=== PATIENT | male | born 1950 | race Two or more races ===

== ENCOUNTER 2021-07-16 13:17 | Emergency (ER) | payer BC ==
[~2021-07-16] VITALS: Ht 175.3 cm; Wt 74.8 kg
[2021-07-16 13:25] VITALS: BP 139/83
--- NOTE | 2021-07-16 14:39 | NUR ---
Accompanied Dr Lerner at for eval.
[2021-07-16] MEDS ORDERED: HYDR30CR79 TP (16:04)
[2021-07-16] MEDS ORDERED: POLY17PO4 PO (16:04)
--- NOTE | 2021-07-16 16:13 | NUR ---
Patient discharged to home in stable condition. Written and verbal after care instructions given. Patient verbalizes understanding of instruction.
== END 2021-07-16 16:13 | disposition home or self-care (01) ==
LOC: EDSEX 13:19 → ER 13:19
DX: K62.89 Other specified diseases of anus and rectum (principal); K59.00 Constipation, unspecified; I10 Essential (primary) hypertension; E11.9 Type 2 diabetes mellitus without complications; E78.00 Pure hypercholesterolemia, unspecified
CPT/HCPCS: 74018

== ENCOUNTER 2025-02-20 18:41 | Emergency (ER) | payer BC ==
[~2025-02-20] VITALS: Ht 170.2 cm; Wt 91.2 kg
[~2025-02-20 18:41] MED LIST: HYDR30CR79 TP; POLY17PO4 PO
[2025-02-20 19:44] LABS: PLATELET COUNT (AUTO) 192 K/uL (150-450); RED BLOOD CELL COUNT(AUTO) 4.81 MIL/uL (4.5-6.0); RED CELL DISTRIBUTION WIDTH 14.7 % (11.5-15.0); WHITE BLOOD COUNT (AUTO) 9.3 K/uL (4.3-11.0)
[2025-02-20 19:53] LABS: CALCIUM, SERUM 9.3 mg/dL (8.5-10.1); CREATININE 2.0 mg/dL (0.6-1.3); SODIUM SERUM 139 mmol/L (136-145); UREA NITROGEN, BLOOD 26 mg/dL (7-18)
[2025-02-20 20:09] LABS: NT-PRO BNP 1306 pg/mL (0-125)
[2025-02-20] MEDS: FUROSEMIDE 40 MG/4 ML VIAL IV ONE (20:32)
[2025-02-20] MEDS ORDERED: FURO-145 PO (22:13)
[2025-02-20 22:38] VITALS: BP 132/91; TEMP 98.3; O2SAT 94
== END 2025-02-20 22:39 | disposition home or self-care (01) ==
LOC: ER 18:46
DX: I11.0 Hypertensive heart disease with heart failure (principal); I50.9 Heart failure, unspecified; E11.9 Type 2 diabetes mellitus without complications; E78.5 Hyperlipidemia, unspecified; Z79.84 Long term (current) use of oral hypoglycemic drugs
CPT/HCPCS: 99285; 96374; 71045; 93005; 85025; 80048; 36415; 84484 ×2; 83880; J1938